=== PATIENT | male | born 1950 | race Hispanic/Latino ===

== ENCOUNTER 2017-12-26 11:26 | Emergency (ER) | payer MEDICARE, OTHER ==
[~2017-12-26] VITALS: Ht 185.4 cm; Wt 115.7 kg
[~2017-12-26 11:26] MED LIST: CIPRO500 MG PO; LISINOPRIL10 MG PO
[2017-12-26] MEDS ORDERED: METHOTREXATE2.5 MG PO (13:52)
[2017-12-26 14:38] VITALS: BP 136/78
== END 2017-12-26 14:30 | disposition home or self-care (01) ==
LOC: FSED 11:26
DX: R42 Dizziness and giddiness (principal); H53.2 Diplopia; H53.19 Other subjective visual disturbances
CPT/HCPCS: 70460; 80048; 81003; 82553; 84484; 85025; 93005; 99283

== ENCOUNTER 2020-02-15 19:13 | Observation (INO) | payer MEDICARE ==
[~2020-02-15] VITALS: Ht 185.4 cm; Wt 115.7 kg
[~2020-02-15 19:13] MED LIST changes: +METHOTREXATE2.5 MG PO
--- OUTSIDE RECORDS SUMMARY | 2020-02-15 19:16 | XMS REPORT ---
Author Author [facility] t Organization [facility] Address 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 Name Role Phone JESSICA MITCHELL, ALVARO PCP Payers Payer Name Policy Type Policy Number Effective Date Expiration Date Claude [employer]ley [employer] Medicare Advantage [id number] [facility] Problems Condition Name Condition Details Condition Category Status Onset Date Resolution Date Last Treatment Date Treating Clinician Comments Source Pancreatitis Pancreatitis Problem Active 2015-10-13 00:00:00 [facility] Allergies, Adverse Reactions, Alerts Allergy Name Allergy Type Status Severity Reaction(s) Onset Date Inacti ve Date Treating Clinician Comments Source Codeine Allergy to Substance Active Moderate hives 2015-10-13 00:00:00 [facility] Hydrocodone Allergy to Substance Active Moderate hives 2015-10-13 00: 00:00 [facility] Medications Ordered Medication Name Filled Medication Name Start Date Stop Da te Current Medication? Ordering Clinician Indication Dosage Frequency Signature (SIG) Comments Components Source Ciprofloxacin Hcl (Cipro) 500 Mg Tablet Ciprofloxacin Hcl (C ipro) 500 Mg Tablet Yes 500 Every 12 Hours [facility] Lisinopril 10 Mg Tablet Lisinopril 10 Mg Tablet Yes 10 Twice A Day [facility] Methotrexate Sodium (Methotrexate) 2.5 Mg Tablet Metho trexate Sodium (Methotrexate) 2.5 Mg Tablet Yes 2.5 Daily [facility] Lisinopril 10 Mg Tablet, 10 Mg Oral Lisinopril 10 Mg Tablet, 10 Mg Oral 2015-10-16 00:00:00 No 10 Daily [facility] Procedures This patient has no known procedures. Encounters Start Date/Time End Date/Time Encounter Type Admission Type Attendi ng Clinicians Care Facility Care Department Encounter ID Source 2017-12-26 11:26:00 2017-12-26 14:30:00 Departed Emergency Room [facility] [id number] [facility] Results This patient has no known results.
[2020-02-15] MEDS ORDERED: SODIUM CHLORIDE 0.9% 1000ML 1,000 ML IV STA (19:23)
[2020-02-15] MEDS ORDERED: PIPER-TAZ 3.375 GM 50 ML IV STA (19:23)
[2020-02-15] MEDS ORDERED: ONDANSETRON HCL INJ 2MG/ML 2ML 2 MG/ML VIAL IV STA (19:23)
[2020-02-15] MEDS ORDERED: ACETAMINOPHEN 325 MG TAB PO ONE (19:30)
--- NOTE | 2020-02-15 20:13 | Emergency Department Note ---
History of Present Illnes History of Present Illness Chief Complaint: Abdominal Complaints History of Present Illness This is a 69 year old male .c/o constipation abd pain nausea x 5 days Chief Complaint Comment 69 Y/O MALE PT AAOX3 REPORTS ABDOMINAL PAIN WITH CONSTIPATION X5-6 DAYS; ORAL TEMP IN TRIAGE 101. F; PT MEDICATED PER PROTOCOL, TOLERATED WEL; 20 GAUGE IV CATH PLACED TO PTS RIGHT FA, BLOOD OBTAINED FOR LAB ANALYSIS; PT GIVEN UA CUP TO OBTAIN SAMPLE Historian: Patient Arrival Mode: Car Onset (how long ago): day(s) (5 days) Radiation: non-radiation, back, neck, extremity, abdomen, periumbilical, flank, proximal, distal, other Severity: moderate Onset quality: gradual Duration (how long): day(s) (5 days) Context: recent illness, recent surgery, recent immobilization, recent travel, trauma/injury, new medications, hx of DVT/PE, non-compliance w/ medications, other Relieving factors: none Exacerbating factors: none Treatments prior to arrival: none Past Medical/Family History Physician Review I have reviewed the patient's past medical and family history. Any updates have been documented here. Past Medical History Recent Fever: Yes Clinical Suspicion of Infectio: Yes New/Unexplained Change in Ment: No Past Medical History: Hypertension Other Medical History: Psoriasis Other Surgery: Back surgery in 1971 for Disc Social History Smoking Cessation: Never Smoker Alcohol Use: None Any Illegal Drug Use: No TB Exposure/Symptoms: No Physically hurt or threatened: No Family History Family history of heart diseas: No Other Last Tetanus: unknown Any Pre-Existing Lines (PICC,: No Review of Systems Review of Systems Constitutional: fever EENTM: no symptoms Cardiovascular: no symptoms Respiratory: no symptoms Gastrointestinal: abdominal pain, constipation, nausea Genitourinary: no symptoms Musculoskeletal: no symptoms Neurological: no symptoms Psychological: no symptoms Endocrine: no symptoms Hematological/Lymphatic: no symptoms Review of other systems All other systems reviewed and negative. Physical Exam Related Data Allergies: Coded Allergies: codeine (Verified Allergy, Intermediate, hives, 10/13/15) hydrocodone (Verified Allergy, Intermediate, hives, 10/13/15) Triage Vital Signs Vital Signs Date Time Temp Pulse Resp B/P (MAP) Pulse Ox O2 Delivery O2 Flow Rate FiO2 02/15/20 19:17 101.5 98 18 230/91 97 Physical Exam CONSTITUTIONAL Constitutional: well-developed, well-nourished HENT HENT: normocephalic, atraumatic, oropharynx clear/moist, nose normal HENT L/R: left ext ear normal, right ext ear normal EYES Eyes: PERRL, conjunctivae normal NECK Neck: ROM normal PULMONARY Pulmonary: effort normal, breath sounds normal CARDIOVASCULAR Cardiovascular: regular rhythm, heart sounds normal, capillary refill normal, normal rate GASTROINTESTINAL Abdominal: soft; nontender (mild ttp left side abd ); bowel sounds normal, other (c/o nausea and no bm x 5 days ) GENITOURINARY Genitourinary: exam deferred SKIN Skin: warm, dry MUSCULOSKELETAL Musculoskeletal: ROM normal NEUROLOGICAL Neurological: alert, oriented x 3, no gross motor or sensory deficits PSYCHOLOGICAL Psychological: mood/affect normal, judgement normal Critical Care Time Subsequent provider I assumed direction of critical care for this patient from another provider of my specialty. Assessment & Plan Reassessment Reassessment time: 20:10 Reassessment Chief Complaint Comment 69 Y/O MALE PT AAOX3 REPORTS ABDOMINAL PAIN WITH CONSTIPATION X5-6 DAYS; ORAL TEMP IN TRIAGE 101. F; PT MEDICATED PER PROTOCOL, TOLERATED WEL; 20 GAUGE IV CATH PLACED TO PTS RIGHT FA, BLOOD OBTAINED FOR LAB ANALYSIS; PT GIVEN UA CUP TO OBTAIN SAMPLE 69y m presented to ed c/o abd pain generalized constipated x 5 days nausea noted fever 101 in triage -seen by pcp placed on mirlax w/o results - noted mild ttp on exam left side abd - denies vomiting diarrhea - lab ekg ct abd ordered r/o sbo -pt medicated w/ tylenol for fever strted on ns liter bolus and given zofran for nausea Patient reevaluated noted to have pancreatitis on CT abdomen and pelvis, febrile on arrival, however, no source of bacterial infection noted. No concerns of severe sepsis or sepsis at time of admission. Patient admitted for monitoring. Assessment & Plan Final Impression: (1) Pancreatitis Assessment & Plan CBC, CMP CT abdomen and pelvis Last Vital Signs Date Time Temp Pulse Resp B/P (MAP) Pulse Ox O2 Delivery O2 Flow Rate FiO2 02/15/20 19:17 101.5 98 18 230/91 97 Home Meds Reported Medications Methotrexate Sodium (METHOTREXATE) 2.5 Mg Tablet, 2.5 MG PO DAILY, #30 TAB 12/26/17 Lisinopril (LISINOPRIL) 10 Mg Tablet, 10 MG PO BID, #30 TAB 10/16/15 Ciprofloxacin Hcl (CIPRO) 500 Mg Tablet, 500 MG PO Q12H, #30 TAB 10/13/15 Medications in the ED Sodium Chloride 1,000 ml @ 0 mls/hr Q0M STAT IV ; Start 02/15/20 at 19:23; Stop 02/15/20 at 19:26; Status DC Piperacillin Sod/ Tazobactam Sod 50 ml @ 50 mls/hr ONCE STAT IV ; Start 02/15/20 at 19:23; Stop 02/15/20 at 20:22 Ondansetron HCl 4 mg ONCE STAT IV ; Start 02/15/20 at 19:23; Stop 02/15/20 at 19:38; Status DC Acetaminophen 975 mg ONCE ONCE PO ; Start 02/15/20 at 19:30; Stop 02/15/20 at 19:38; Status DC LOLA COLIN, February 15, 2020 20:13
[2020-02-15 20:19] LABS: BASOPHILS % 0.2 % (0.0-1.0); EOSINOPHILS % 0.3 % (0.0-6.0); HEMATOCRIT 43.2 % (38.2-49.6); HEMOGLOBIN 14.9 g/dL (14.0-18.0); LYMPHOCYTES # (AUTO) 1.1 (1.0-3.2); LYMPHOCYTES % 9.3 % (18.0-39.1); MEAN CORPUSCULAR HEMOGLOBIN 31.3 pg (28-32); MEAN CORPUSCULAR HGB CONC 34.5 g/dL (31-35); MEAN CORPUSCULAR VOLUME 90.8 fL (81-99); MONOCYTES # (AUTO) 1.1 (0.2-0.8); MONOCYTES % 9.6 % (4.4-11.3); NEUTROPHILS # (AUTO) 9.6 (2.1-6.9); NEUTROPHILS % 80.2 % (38.7-80.0); PLATELET COUNT 209 x10e3/uL (140-360); RED BLOOD COUNT 4.76 x10e6/uL (4.3-5.7); RED CELL DISTRIBUTION WIDTH 12.9 % (11.7-14.4)
[2020-02-15 20:37] LABS: ALANINE AMINOTRANSFERASE 17 IU/L (0-55); ALBUMIN 3.5 g/dL (3.5-5.0); ALBUMIN/GLOBULIN RATIO 0.9 (0.8-2.0); ALKALINE PHOSPHATASE 44 IU/L (40-150); ANION GAP 15.7 mmol/L (8-16); BLOOD UREA NITROGEN 11 mg/dL (7-26); BUN/CREATININE RATIO 11 (6-25); CALCIUM 9.5 mg/dL (8.4-10.2); CARBON DIOXIDE 24 mmol/L (22-29); CHLORIDE 101 mmol/L (98-107); CREATINE KINASE 146 IU/L (30-200); CREATININE, SERUM 1.04 mg/dL (0.72-1.25); EST GLOMERULAR FILTRATION RATE > 60 ML/MIN (60-); GLUCOSE 117 mg/dL (74-118); LIPASE 79 U/L (8-78); POTASSIUM 3.7 mmol/L (3.5-5.1); SODIUM 137 mmol/L (136-145)
[2020-02-15 21:06] LABS: BILIRUBIN,URINE SMALL (NEGATIVE); CLARITY,URINE SL CLOUDY (CLEAR); COLOR,URINE STRAW (YELLOW); KETONES,URINE 1+ (NEGATIVE); LEUKOCYTE ESTERASE ,URINE NEGATIVE (NEGATIVE); NITRITE,URINE NEGATIVE (NEGATIVE); PROTEIN,URINE DIPSTICK 1+ (NEGATIVE); URINE UROBILINOGEN 4 mg/dL (0.2 - 1)
[2020-02-15 21:17] LABS: BACTERIA,URINE MODERATE /HPF; EPITHELIAL CELLS,URINE FEW /LPF; MUCUS,URINE FEW (RARE); RBC,URINE 0-5 /HPF (0-5)
--- NOTE | 2020-02-15 21:37 | Diagnostic Imaging Report ---
EXAM: CT Abdomen and Pelvis WITH contrast INDICATION: Constipation, nausea COMPARISON: None. TECHNIQUE: Abdomen and pelvis were scanned utilizing a multidetector helical scanner from the lung base to the pubic symphysis after administration of IV contrast. Coronal and sagittal reformations were obtained. Routine protocol was performed. Scan was performed when during portal venous phase. IV CONTRAST: 100 mL of Isovue 370 ORAL CONTRAST: None COMPLICATIONS: None RADIATION DOSE: Total DLP: 847 mGy*cm Estimated effective dose: (DLP x 0.015 x size factor) mSv CTDIvol has been reviewed. It is below the limits set by the Radiation Protocol Committee (RPC). Dose modulation, iterative reconstruction, and/or weight based adjustment of the mA/kV was utilized to reduce the radiation dose to as low as reasonably achievable. FINDINGS: LINES and TUBES: None. LOWER THORAX: Left basilar atelectasis/scarring. HEPATOBILIARY: Enlarged hypodense liver. No focal hepatic lesions. No biliary ductal dilation. GALLBLADDER: No radio-opaque stones or sludge. No wall thickening. SPLEEN: No splenomegaly. PANCREAS: No focal masses or ductal dilatation. ADRENALS: No adrenal nodules KIDNEYS/URETERS: Kidneys enhance symmetrically. No hydronephrosis. No cystic or solid mass lesions. No stones. GI TRACT: No abnormal distention, wall thickening, or evidence of bowel obstruction. Few fluid-filled loops of nondilated small bowel in the mid to lower abdomen. Liquid stool in the colon and rectum. Appendix is normal. PELVIC ORGANS/BLADDER: Unremarkable. LYMPH NODES: No lymphadenopathy. VESSELS: There is moderate atherosclerotic disease in the aorta and major arterial branches. PERITONEUM / RETROPERITONEUM: Mild peripancreatic/mesenteric root edema, and a few tiny nodules in the mesenteric root fat. No free air or fluid. BONES: There are degenerative changes in the spine. SOFT TISSUES: Unremarkable. IMPRESSION: 1. Subtle findings which can be seen with enteritis. 2. Mild peripancreatic/mesenteric root edema could be related to enteritis although mild edematous pancreatitis or mesenteric panniculitis are also considerations. Correlate with serum lipase. Signed by: John Paul Rodas DO on 02/15/2020 9:34 PM
[2020-02-15] MEDS ORDERED: SODIUM CHLORIDE 0.9% 50ML 50 ML ONE (23:54)
[2020-02-15] MEDS ORDERED: IOPAMIDOL 370 MG/ML 200 ML INFUS..BTL INJ ONE (23:54)
[2020-02-16] VITALS (8 sets, daily range): BP systolic 141–160; BP diastolic 76–88
[2020-02-16] MEDS ORDERED: ONDANSETRON HCL INJ 2MG/ML 2ML 2 MG/ML VIAL IV PRN (00:30)
[2020-02-16] MEDS ORDERED: MORPHINE SULFATE 2 MG/ML SYR 1ML IV PRN (00:30)
[2020-02-16] MEDS ORDERED: SODIUM CHLORIDE 0.9% 1000ML 1,000 ML ONE (01:37)
[2020-02-16] MEDS ORDERED: PIPER-TAZ 3.375 GM 50 ML ONE (01:37)
--- NOTE | 2020-02-16 03:03 | NUR ---
Patient arrived to unit from ER via wheelchair in stable condition. No s/s of distress or c/o pain at this time. All safety measures in place. Will continue to monitor.
[2020-02-16] MEDS ORDERED: HUMIRA (03:13)
[2020-02-16] MEDS ORDERED: SIMVASTATIN20 MG PO (03:13)
--- OUTSIDE RECORDS SUMMARY | 2020-02-16 03:29 | XMS REPORT ---
Author Author [facility] t Organization [facility] Address [address] [place] [address] Phone Unavailable Care Team Providers Care Chore Worker Name Role Phone JESSICA MITCHELL, IRFAN PCP Mitchell SCHRADER Attphyeverton Unavailable Payers Payer Name Policy Type Policy Number Effective Date Expiration Date [facility] Medicare Advantage [facility] Problems Condition Name Condition Details Condition Category Status Onset Date Resolution Date Last Treatment Date Treating Clinician Comments Source Pancreatitis Pancreatitis Problem Active 2015-10-13 00:00:00 [facility] Allergies, Adverse Reactions, Alerts Allergy Name Allergy Type Status Severity Reaction(s) Onset Date Inacti ve Date Treating Clinician Comments Source Codeine Allergy to substance Active Moderate hives 2015-10-13 00:00:00 [facility] Hydrocodone Allergy to substance Active Moderate hives 2015-10-13 00: 00:00 [facility] Social History Social Habit Start Date Stop Date Quantity Comments Source Sex Assigned At 1950 00:00:00 1950 00:00:00 Male [facility] Medications Ordered Medication Name Filled Medication Name Start Date Stop Da te Current Medication? Ordering Clinician Indication Dosage Frequency Signature (SIG) Comments Components Source Ciprofloxacin Hcl (Cipro) 500 Mg TABLET Ciprofloxacin Hcl (C ipro) 500 Mg TABLET Yes 500 Every 12 Hours [facility] Lisinopril Lisinopril Yes 10 Twice A Day [facility] Methotrexate Sodium (Methotrexate) 2.5 Mg TABLET Metho trexate Sodium (Methotrexate) 2.5 Mg TABLET Yes 2.5 Daily [facility] Lisinopril Lisinopril 2015-10-16 00:00:00 No 10 Maritza ly [facility] Vital Signs Vital Name Observation Time Observation Value Comments Source Body Temperature 2020-02-15 22:07:00 97.7 [degF] [facility] Weight 2020-02-15 19:17:00 255 [lb_av] [facility] BMI (Body Mass Index) 2020-02-15 19:17:00 33.6 kg/m2 [facility] Procedures Procedure Date / Time Performed Performing Clinician Sourlatonya e Computed tomography of abdomen and pelvis with contrast 00:00:00 [facility] Encounters Start Date/Time End Date/Time [facility] Source 2020-02-15 19:13:00 2020-02-16 01:57:00 Departed Emergency Room 1 MAGEN SCHRADER [facility] [id number] [facility] 2017-12-26 11:26:00 2017-12-26 14:30:00 Departed Emergency Room [facility] [id number] [facility] Results Test Description Test Time Test Comments Results Result Comments Source CT ABDOMEN/PELVIS W 2020-02-15 21:29:00 [place] [address] Patient Name: DEBRA ROMERO MR #: [id number] : 1950 Age/Sex: 69/M Req #: [id number] Adm Physician: Ordered by: VADIM WILEY TILE FINISHER Report #: [id number] Location: ER Room/Bed: Procedure: [id number] CT/CT ABDOMEN/PELVIS W Exam Date: 02/15/20 Exam Time: 2109 REPORT STATUS: Signed EXAM: CT Abdomen and Pelvis WITH contrast INDICATION: Constipation, nausea COMPARISON: None. TECHNIQUE: Abdomen and pelvis were scanned utilizing a multidetector helical scanner from the lung base to the pubic symphysis after administration of IV contrast. Coronal and sagittal reformations were obtained. Routine protocol was performed. Scan was performed when during portal venous phase. IV CONTRAST: 100 mL of Isovue 370 ORAL CONTRAST: None COMPLICATIONS: None RADIATION DOSE: Total DLP: 847 mGy*cm Estimated effective dose: (DLP x 0.015 x size factor) mSv CTDIvol has been reviewed. It is below the limits set by the Radiation Protocol Committee (RPC). Dose modulation, iterative reconstruction, and/or weight based adjustment of the mA/kV was utilized to reduce the radiation dose to as low as reasonably achievable. FINDINGS: LINES and TUBES: None. LOWER THORAX: Left basilar atelectasis/scarring. HEPATOBILIARY: Enlarged hypodense liver. No focal hepatic lesions. No biliary ductal dilation. GALLBLADDER: No radio-opaque stones or sludge. No wall thickening. SPLEEN: No splenomegaly. PANCREAS: No focal masses or ductal dilatation. ADRENALS: No adrenal nodules KIDNEYS/URETERS: Kidneys enhance symmetrically. No hydronephrosis. No cystic or solid mass lesions. No stones. GI TRACT: No abnormal distention, wall thickening, or evidence of bowel obstruction. Few fluid-filled loops of nondilated small bowel in the mid to lower abdomen. Liquid stool in the colon and rectum. Appendix is normal. PELVIC ORGANS/BLADDER: Unremarkable. LYMPH NODES: No lymphadenopathy. VESSELS: There is moderate atherosclerotic disease in the aorta and major arterial branches. PERITONEUM / RETROPERITONEUM: Mild peripancreatic/mesenteric root edema, and a few tiny nodules in the mesenteric root fat. No free air or fluid. BONES: There are degenerative changes in the spine. SOFT TISSUES: Unremarkable. IMPRESSION: 1. Subtle findings which can be seen with enteritis. 2. Mild peripancreatic/mesenteric root edema could be related to enteritis although mild edematous pancreatitis or mesenteric panniculitis are also considerations. Correlate with serum lipase. Signed by: John Paul Rodas DO on 02/15/2020 9:34 PM Dictated By: JOHN PAUL RODAS DO 33 Transcribed By: SAMANTHA on 02/15/202133 COPY TO: VADIM WILEY TILE FINISHER Blood leukocytes automated count (number/volume) 2020-02-15 19:30:00 Test Item White Blood Count (test code = 6690-2) 11.91 4.8-10.8 [facility] automated count (number/volume)2020-02-15 19:30:00* Test Item Value Reference Range Interpretation Comments Red Blood Count (test code = 789-8) 4.76 4.3-5.7 [facility] hemoglobin measurement (moles/volume)2020-02-15 19:30:00* Test Item Value Reference Range Interpretation Comments Hemoglobin (test code = 17894-2) 14.9 14.0-18.0 [facility] CampusAutomated blood hematocrit (volume fraction)2020-02-15 19:30:00* Test Item Value Reference Range Interpretation Comments Hematocrit (test code = 4544-3) 43.2 38.2-49.6 [facility] CampusAutomated erythrocyte mean corpuscular zktxpb3043-05-19 19:30:00* Test Item Value Reference Range Interpretation Comments Mean Corpuscular Volume (test code = 787-2) 90.8 81-99 [facility] CampusAutomated erythrocyte mean corpuscular hemoglobin (mass per erythrocyte)2020-02-15 19:30:00* Test Item Value Reference Range Interpretation Comments Mean Corpuscular Hemoglobin (test code = 785-6) 31.3 28-32 [facility] CampusAutomated erythrocyte mean corpuscular hemoglobin concentration measurement (mass/volume)2020-02-15 19:30:00* Test Item Value Reference Range Interpretation Comments Mean Corpuscular Hemoglobin Concent (test code = 786-4) 34.5 31-35 [facility] CampusRDW ZtbLs-Vsr3694-15-29 19:30:00* Test Item Value Reference Range Interpretation Comments Red Cell Distribution Width (test code = 56436-5) 12.9 11.7 -14.4 [facility] CampusAutomated blood platelet count (count/volume)2020-02-15 19:30:00* Test Item Value Reference Range Interpretation Comments Platelet Count (test code = 777-3) 209 140-360 [facility] CampusAutomated blood segmented neutrophil count as percentage of total zismqzovxc3572-83-52 19:30:00* Test Item Value Reference Range Interpretation Comments Neutrophils (%) (Auto) (test code = 86745-7) 80.2 38.7-80.0 [facility] CampusAutomated blood lymphocyte count as percentage ot total efmhyvgryo8924-26-43 19:30:00* Test Item Value Reference Range Interpretation Comments Lymphocytes (%) (Auto) (test code = 736-9) 9.3 18.0-39.1 [facility] CampusAutomated blood monocyte count as percentage of total ipxyavufwf7537-81-28 19:30:00* Test Item Value Reference Range Interpretation Comments Monocytes (%) (Auto) (test code = 5905-5) 9.6 4.4-11.3 [facility] CampusAutomated blood eosinophil count as percentage of total ipeqaknxja9333-57-45 19:30:00* Test Item Value Reference Range Interpretation Comments Eosinophils (%) (Auto) (test code = 713-8) 0.3 0.0-6.0 [facility] CampusAutomated blood basophil count as percentage of total duyhklmtdh2999-00-70 19:30:00* Test Item Value Reference Range Interpretation Comments Basophils (%) (Auto) (test code = 706-2) 0.2 0.0-1.0 [facility] CampusFluoroscopic procedure less than one hour rhzxkndd6486-04-52 19:30:00* Test Item Value Reference Range Interpretation Comments IM GRANULOCYTES % (test code = IM GRANULOCYTES %) 0.4 0.0- 1.0 [facility] CampusAutomated blood neutrophil count 2020-02-15 19:30:00* Test Item Value Reference Range Interpretation Comments Neutrophils # (Auto) (test code = 751-8) 9.6 2.1-6.9 [facility]Blood lymphocytes count (number/volume) 2020-02-15 19:30:00* Test Item Value Reference Range Interpretation Comments Lymphocytes # (Auto) (test code = 41233-2) 1.1 1.0-3.2 [facility]Blood monocytes automated count (number/volume)2020-02-15 19:30:00* Test Item Value Reference Range Interpretation Comments Monocytes # (Auto) (test code = 742-7) 1.1 0.2-0.8 [facility] CampusAutomated blood eosinophil count 2020-02-15 19:30:00* Test Item Value Reference Range Interpretation Comments Eosinophils # (Auto) (test code = 711-2) 0.0 0.0-0.4 [facility] CampusAutomated blood basophil count (count/volume)2020-02-15 19:30:00* Test Item Value Reference Range Interpretation Comments Basophils # (Auto) (test code = 704-7) 0.0 0.0-0.1 [facility] CampusFluoroscopic procedure less than one hour lxrgejrt3388-72-57 19:30:00* Test Item Value Reference Range Interpretation Comments Absolute Immature Granulocyte (auto (richard t code = Absolute Immature Granulocyte (auto) 0.05 0-0.1 [facility] CampusUrine color hvoscaojljqzi0632-00-43 19:30:00* Test Item Value Reference Range Interpretation Comments Urine Color (test code = 5778-6) STRAW YELLOW [facility] CampusUrine gksbcpf8644-91-74 19:30:00* Test Item Value Reference Range Interpretation Comments Urine Clarity (test code = 11784-5) SL CLOUDY CLEAR [facility] Urine by Test strip 2020-02-15 19:30:00* Test Item Value Reference Range Interpretation Comments Urine Specific [place] (test code = 5811-5) 1.020 1.010-1.02 5 [facility] CampusUrine pH measurement by automated test pjlid7963-06-99 19:30:00* Test Item Value Reference Range Interpretation Comments Urine pH (test code = 15466-4) 6 5-7 [facility] CampusUrine leukocyte esterase detection by lzdqrlpw0314-90-76 19:30:00* Test Item Value Reference Range Interpretation Comments Urine Leukocyte Esterase (test code = 5799-2) NEGATIVE NEGATIVE [facility] CampusUrine nitrite bgskjpcfb2902-80-40 19:30:00* Test Item Value Reference Range Interpretation Comments Urine Nitrite (test code = 21427-1) NEGATIVE NEGATIVE [facility] CampusUrine protein measurement by test strip (mass/volume)2020-02-15 19:30:00* Test Item Value Reference Range Interpretation Comments Urine Protein (test code = 5804-0) 1+ NEGATIVE [facility] CampusUrine glucose dfyvaqigi7767-08-85 19:30:00* Test Item Value Reference Range Interpretation Comments Urine Glucose (UA) (test code = 2349-9) NEGATIVE NEGATIVE [facility] CampusUrine ketones detection by automated test ydqyv8515-89-94 19:30:00* Test Item Value Reference Range Interpretation Comments Urine Ketones (test code = 69470-8) 1+ NEGATIVE [facility] CampusUrine urobilinogen measurement by test strip (mass/volume)2020-02-15 19:30:00* Test Item Value Reference Range Interpretation Comments Urine Urobilinogen (test code = 75185-1) 4 0.2-1 [facility] CampusUrine total bilirubin measurement (mass/volume)2020-02-15 19:30:00* Test Item Value Reference Range Interpretation Comments Urine Bilirubin (test code = 1978-6) SMALL NEGATIVE [facility] CampusUrine erythrocytes lrwpguakc3316-24-83 19:30:00* Test Item Value Reference Range Interpretation Comments Urine Blood (test code = 71529-3) TRACE NEGATIVE [facility] CampusAutomated urine sediment leukocyte count by microscopy (number/high power field)2020-02-15 19:30:00* Test Item Value Reference Range Interpretation Comments Urine WBC (test code = 5821-4) NONE 0-5 [facility] CampusErythrocytes detection in urine sediment by light rfgcpcylow3745-08-42 19:30:00* Test Item Value Reference Range Interpretation Comments Urine RBC (test code = 56930-4) 0-5 0-5 [facility] CampusBacteria detection in urine sediment by light hacrqsxwhh6304-78-59 19:30:00* Test Item Value Reference Range Interpretation Comments Urine Bacteria (test code = 00066-5) MODERATE NONE [facility] CampusEpithelial cells detection in urine sediment by light leeqievthv1363-39-02 19:30:00* Test Item Value Reference Range Interpretation Comments Urine Epithelial Cells (test code = 25678-6) FEW NONE [facility] CampusMucus detection in urine sediment by light wdhvbqpmsw2016-75-84 19:30:00* Test Item Value Reference Range Interpretation Comments Urine Mucus (test code = 8247-9) FEW RARE [facility]ererum or plasma sodium measurement (moles/volume)2020-02-15 19:30:00* Test Item Value Reference Range Interpretation Comments Sodium Level (test code = 2951-2) 137 136-145 [facility]ererum or plasma potassium measurement (moles/volume)2020-02-15 19:30:00* Test Item Value Reference Range Interpretation Comments Potassium Level (test code = 2823-3) 3.7 3.5-5.1 [facility]ererum or plasma chloride measurement (moles/volume)2020-02-15 19:30:00* Test Item Value Reference Range Interpretation Comments Chloride Level (test code = 2075-0) 101 98-107 [facility]ererum or plasma carbon dioxide, total measurement (moles/volume)2020-02-15 19:30:00* Test Item Value Reference Range Interpretation Comments Carbon Dioxide Level (test code = 2028-9) 24 22-29 [facility]ererum or plasma anion [id number] 19:30:00* Test Item Value Reference Range Interpretation Comments Anion Gap (test code = 33821-2) 15.7 8-16 [facility]ererum or plasma urea nitrogen measurement (mass/volume)2020-02-15 19:30:00* Test Item Value Reference Range Interpretation Comments Blood Urea Nitrogen (test code = 3094-0) 11 7-26 [facility]ererum or plasma creatinine measurement (mass/volume)2020-02-15 19:30:00* Test Item Value Reference Range Interpretation Comments Creatinine (test code = 2160-0) 1.04 0.72-1.25 [facility]ererum or plasma urea nitrogen/creatinine mass dkaez2128-89-87 19:30:00* Test Item Value Reference Range Interpretation Comments BUN/Creatinine Ratio (test code = 3097-3) 11 03-13 [facility] CampusEstimated glomerular filtration rate (GFR) fkrenpvbhyuzj5141-93-76 19:30:00* Test Item Value Reference Range Interpretation Comments Estimat Glomerular Filtration Rate (test code = 233892802) > 60 >60 Ranges were taken from the National Kidney Disease Education Program and the [facility] literature.Reference ranges:60 or greater: Jxhjyp14-85 ( for 3 consecutive months): Chronic kidney disease 15 or less: Kidney failureThe Hospitals of Providence East CampusGlucose ssmekhtrjly6630-89-94 19:30:00* Test Item Value Reference Range Interpretation Comments Glucose Level (test code = REZ9396) 117 74-118 [facility]ererum or plasma calcium measurement (mass/volume)2020-02-15 19:30:00* Test Item Value Reference Range Interpretation Comments Calcium Level (test code = 24847-9) 9.5 8.4-10.2 [facility] CampusFluoroscopic procedure less than one hour fcilllrc1127-80-89 19:30:00* Test Item Value Reference Range Interpretation Comments Lactic Acid Level (test code = Lactic Acid Level) 1.1 0.5- 2.0 [facility]ererum or plasma total bilirubin measurement (mass/volume)2020-02-15 19:30:00* Test Item Value Reference Range Interpretation Comments Total Bilirubin (test code = 1975-2) 1.0 0.2-1.2 [facility] CampusFluoroscopic procedure less than one hour fufytxbd6359-82-06 19:30:00* Test Item Value Reference Range Interpretation Comments Aspartate Amino Transf (AST/SGOT) (test code = Aspartate Amino Transf (AST/SGOT)) 13 5-34 [facility] Centererum or plasma alanine aminotransferase measurement (enzymatic activity/volume)2020-02-15 19:30:00* Test Item Value Reference Range Interpretation Comments Alanine Aminotransferase (ALT/SGPT) (test code = 1742-6) 17 0-55 [facility] Centererum or plasma protein measurement (mass/volume)2020-02-15 19:30:00* Test Item Value Reference Range Interpretation Comments Total Protein (test code = 2885-2) 7.5 6.5-8.1 [facility]ererum or plasma albumin measurement (mass/volume)2020-02-15 19:30:00* Test Item Value Reference Range Interpretation Comments Albumin (test code = 1751-7) 3.5 3.5-5.0 [facility] CampusPlasma globulin measurement (mass/volume) 2020-02-15 19:30:00* Test Item Value Reference Range Interpretation Comments Globulin (test code = 93799-6) 4.0 2.3-3.5 [facility]ererum or plasma albumin/globulin mass sqaqa4074-78-76 19:30:00* Test Item Value Reference Range Interpretation Comments Albumin/Globulin Ratio (test code = 1759-0) 0.9 0.8-2.0 [facility]ererum or plasma alkaline phosphatase measurement (enzymatic activity/volume)2020-02-15 19:30:00* Test Item Value Reference Range Interpretation Comments Alkaline Phosphatase (test code = 6768-6) 44 40-150 [facility]ererum or plasma creatine kinase measurement (enzymatic activity/volume)2020-02-15 19:30:00* Test Item Value Reference Range Interpretation Comments Creatine Kinase (test code = 2157-6) 146 30-200 [facility] Centererum or plasma creatine kinase MB measurement (mass/volume)2020-02-15 19:30:00* Test Item Value Reference Range Interpretation Comments Creatine Kinase MB (test code = 00993-1) 0.60 0-5.0 [facility] CampusTroponin I measurement by highly sensitive enzyme rixtcqrjcur9868-18-98 19:30:00* Test Item Value Reference Range Interpretation Comments Troponin I (test code = 22774-6) < 0.001 0-0.300 [facility]ererum or plasma lipase measurement (enzymatic activity/volume)2020-02-15 19:30:00* Test Item Value Reference Range Interpretation Comments Lipase (test code = 3040-3) 79 8-78 [facility] CampusBlood leukocytes automated count (number/volume)2020-02-15 19:30:00* Test Item Value Reference Range Interpretation Comments White Blood Count (test code = 6690-2) 11.91 4.8-10.8 [facility] CampusBlood erythrocytes automated count (number/volume)2020-02-15 19:30:00* Test Item Value Reference Range Interpretation Comments Red Blood Count (test code = 789-8) 4.76 4.3-5.7 [facility] (moles/volume)2020-02-15 19:30:00* Test Item Value Reference Range Interpretation Comments Hemoglobin (test code = 62453-5) 14.9 14.0-18.0 [facility] CampusAutomated blood hematocrit (volume fraction)2020-02-15 19:30:00* Test Item Value Reference Range Interpretation Comments Hematocrit (test code = 4544-3) 43.2 38.2-49.6 [facility] CampusAutomated erythrocyte mean corpuscular uacpli4165-07-22 19:30:00* Test Item Value Reference Range Interpretation Comments Mean Corpuscular Volume (test code = 787-2) 90.8 81-99 [facility] CampusAutomated erythrocyte mean corpuscular hemoglobin (mass per erythrocyte)2020-02-15 19:30:00* Test Item Value Reference Range Interpretation Comments Mean Corpuscular Hemoglobin (test code = 785-6) 31.3 28-32 [facility] CampusAutomated erythrocyte mean corpuscular hemoglobin concentration measurement (mass/volume)2020-02-15 19:30:00* Test Item Value Reference Range Interpretation Comments Mean Corpuscular Hemoglobin Concent (test code = 786-4) 34.5 31-35 [facility] CampusRDW KibQr-Nml6742-56-29 19:30:00* Test Item Value Reference Range Interpretation Comments Red Cell Distribution Width (test code = 58156-3) 12.9 11.7 -14.4 [facility] CampusAutomated blood platelet count (count/volume)2020-02-15 19:30:00* Test Item Value Reference Range Interpretation Comments Platelet Count (test code = 777-3) 209 140-360 [facility] CampusAutomated blood segmented neutrophil count as percentage of total lvztvresyg0572-30-12 19:30:00* Test Item Value Reference Range Interpretation Comments Neutrophils (%) (Auto) (test code = 50766-0) 80.2 38.7-80.0 [facility] CampusAutreplaced by [facility] blood lymphocyte count as percentage ot total hhzfkudtyv7304-27-79 19:30:00* Test Item Value Reference Range Interpretation Comments Lymphocytes (%) (Auto) (test code = 736-9) 9.3 18.0-39.1 [facility] CampusAutomated blood monocyte count as percentage of total flayhxfjuw4518-24-59 19:30:00* Test Item Value Reference Range Interpretation Comments Monocytes (%) (Auto) (test code = 5905-5) 9.6 4.4-11.3 [facility] CampusAutomated blood eosinophil count as percentage of total aqvhiufelc0343-89-86 19:30:00* Test Item Value Reference Range Interpretation Comments Eosinophils (%) (Auto) (test code = 713-8) 0.3 0.0-6.0 [facility] CampusAutomated blood basophil count as percentage of total wmanwbjydf6004-50-81 19:30:00* Test Item Value Reference Range Interpretation Comments Basophils (%) (Auto) (test code = 706-2) 0.2 0.0-1.0 [facility] CampusFluoroscopic procedure less than one hour ljezclhx7834-93-80 19:30:00* Test Item Value Reference Range Interpretation Comments IM GRANULOCYTES % (test code = IM GRANULOCYTES %) 0.4 0.0- 1.0 [facility] CampusAutomated blood neutrophil count 2020-02-15 19:30:00* Test Item Value Reference Range Interpretation Comments Neutrophils # (Auto) (test code = 751-8) 9.6 2.1-6.9 [facility] CampusBlood lymphocytes count (number/volume) 2020-02-15 19:30:00* Test Item Value Reference Range Interpretation Comments Lymphocytes # (Auto) (test code = 62122-5) 1.1 1.0-3.2 [facility] CampusBlood monocytes automated count (number/volume)2020-02-15 19:30:00* Test Item Value Reference Range Interpretation Comments Monocytes # (Auto) (test code = 742-7) 1.1 0.2-0.8 [facility] CampusAutomated blood eosinophil count 2020-02-15 19:30:00* Test Item Value Reference Range Interpretation Comments Eosinophils # (Auto) (test code = 711-2) 0.0 0.0-0.4 [facility] CampusAutomated blood basophil count (count/volume)2020-02-15 19:30:00* Test Item Value Reference Range Interpretation Comments Basophils # (Auto) (test code = 704-7) 0.0 0.0-0.1 [facility] CampusFluoroscopic procedure less than one hour nslmkqtf5303-81-64 19:30:00* Test Item Value Reference Range Interpretation Comments Absolute Immature Granulocyte (auto (richard t code = Absolute Immature Granulocyte (auto) 0.05 0-0.1 [facility] color [id number] 19:30:00* Test Item Value Reference Range Interpretation Comments Urine Color (test code = 5778-6) STRAW YELLOW [facility] [id number] 19:30:00* Test Item Value Reference Range Interpretation Comments Urine Clarity (test code = 12458-2) SL CLOUDY CLEAR [facility] by Test strip 2020-02-15 19:30:00* Test Item Value Reference Range Interpretation Comments Urine Specific [place] (test code = 5811-5) 1.020 1.010-1.02 5 [facility] pH measurement by automated test [id number] 19:30:00* Test Item Value Reference Range Interpretation Comments Urine pH (test code = 44328-7) 6 5-7 [facility] leukocyte esterase detection by [id number] 19:30:00* Test Item Value Reference Range Interpretation Comments Urine Leukocyte Esterase (test code = 5799-2) NEGATIVE NEGATIVE [facility] nitrite [id number] 19:30:00* Test Item Value Reference Range Interpretation Comments Urine Nitrite (test code = 99402-2) NEGATIVE NEGATIVE [facility] protein measurement by test strip (mass/volume)2020-02-15 19:30:00* Test Item Value Reference Range Interpretation Comments Urine Protein (test code = 5804-0) 1+ NEGATIVE [facility] glucose [id number] 19:30:00* Test Item Value Reference Range Interpretation Comments Urine Glucose (UA) (test code = 2349-9) NEGATIVE NEGATIVE [facility] ketones detection by automated test [id number] 19:30:00* Test Item Value Reference Range Interpretation Comments Urine Ketones (test code = 22968-1) 1+ NEGATIVE [facility] urobilinogen measurement by test strip (mass/volume)2020-02-15 19:30:00* Test Item Value Reference Range Interpretation Comments Urine Urobilinogen (test code = 17098-8) 4 0.2-1 [facility] total bilirubin measurement (mass/volume)2020-02-15 19:30:00* Test Item Value Reference Range Interpretation Comments Urine Bilirubin (test code = 1978-6) SMALL NEGATIVE [facility] erythrocytes [id number] 19:30:00* Test Item Value Reference Range Interpretation Comments Urine Blood (test code = 12674-9) TRACE NEGATIVE [facility] CampusAutomated urine sediment leukocyte count by microscopy (number/high power field)2020-02-15 19:30:00* Test Item Value Reference Range Interpretation Comments Urine WBC (test code = 5821-4) NONE 0-5 [facility] CampusErythrocytes detection in urine sediment by light [id number] 19:30:00* Test Item Value Reference Range Interpretation Comments Urine RBC (test code = 95132-3) 0-5 0-5 [facility] CampusBacteria detection in urine sediment by light [id number] 19:30:00* Test Item Value Reference Range Interpretation Comments Urine Bacteria (test code = 89383-9) MODERATE NONE [facility] CampusEpithelial cells detection in urine sediment by light [id number] 19:30:00* Test Item Value Reference Range Interpretation Comments Urine Epithelial Cells (test code = 41957-5) FEW NONE [facility] CampusMucus detection in urine sediment by light afcnhbdget4548-37-99 19:30:00* Test Item Value Reference Range Interpretation Comments Urine Mucus (test code = 8247-9) FEW RARE [facility] sodium measurement (moles/volume)2020-02-15 19:30:00* Test Item Value Reference Range Interpretation Comments Sodium Level (test code = 2951-2) 137 136-145 [facility] or plasma potassium measurement (moles/volume)2020-02-15 19:30:00* Test Item Value Reference Range Interpretation Comments Potassium Level (test code = 2823-3) 3.7 3.5-5.1 [facility] plasma chloride measurement (moles/volume)2020-02-15 19:30:00* Test Item Value Reference Range Interpretation Comments Chloride Level (test code = 2075-0) 101 98-107 [facility] or plasma carbon dioxide, total measurement (moles/volume)2020-02-15 19:30:00* Test Item Value Reference Range Interpretation Comments Carbon Dioxide Level (test code = 2028-9) 24 22-29 [facility] or plasma anion [id number] 19:30:00* Test Item Value Reference Range Interpretation Comments Anion Gap (test code = 93853-9) 15.7 8-16 [facility] urea nitrogen measurement (mass/volume)2020-02-15 19:30:00* Test Item Value Reference Range Interpretation Comments Blood Urea Nitrogen (test code = 3094-0) 11 - [facility] or plasma creatinine measurement (mass/volume)2020-02-15 19:30:00* Test Item Value Reference Range Interpretation Comments Creatinine (test code = 2160-0) 1.04 0.72-1.25 [facility]ere[facility] or plasma urea nitrogen/creatinine mass [id number] 19:30:00* Test Item Value Reference Range Interpretation Comments BUN/Creatinine Ratio (test code = 3097-3) 11 - [facility] CampusEstimated glomerular filtration rate (GFR) pmcfqphhnxhpr0844-47-44 19:30:00* Test Item Value Reference Range Interpretation Comments Estimat Glomerular Filtration Rate (test code = 386701014) > 60 >60 Ranges were taken from the National Kidney Disease Education Program and the [facility] literature.Reference ranges:60 or greater: Sbiclr99-26 ( for 3 consecutive months): Chronic kidney disease 15 or less: Kidney failureThe Hospitals of [facility] CampusGlucose qlxgaefjwbt5566-61-50 19:30:00* Test Item Value Reference Range Interpretation Comments Glucose Level (test code = LVD3032) 117 74-118 [facility]ere[facility] or plasma calcium measurement (mass/volume)2020-02-15 19:30:00* Test Item Value Reference Range Interpretation Comments Calcium Level (test code = 07497-7) 9.5 8.4-10.2 [facility] CampusFluoroscopic procedure less than one hour [id number] 19:30:00* Test Item Value Reference Range Interpretation Comments Lactic Acid Level (test code = Lactic Acid Level) 1.1 0.5- 2.0 [facility] or plasma total bilirubin measurement (mass/volume)2020-02-15 19:30:00* Test Item Value Reference Range Interpretation Comments Total Bilirubin (test code = 1975-2) 1.0 0.2-1.2 [facility] CampusFluoroscopic procedure less than one hour [id number] 19:30:00* Test Item Value Reference Range Interpretation Comments Aspartate Amino Transf (AST/SGOT) (test code = Aspartate Amino Transf (AST/SGOT)) 13 5-34 [facility]ererum or plasma alanine aminotransferase measurement (enzymatic activity/volume)2020-02-15 19:30:00* Test Item Value Reference Range Interpretation Comments Alanine Aminotransferase (ALT/SGPT) (test code = 1742-6) 17 0-55 [facility]ererum or plasma protein measurement (mass/volume)2020-02-15 19:30:00* Test Item Value Reference Range Interpretation Comments Total Protein (test code = 2885-2) 7.5 6.5-8.1 [facility]ererum or plasma albumin measurement (mass/volume)2020-02-15 19:30:00* Test Item Value Reference Range Interpretation Comments Albumin (test code = 1751-7) 3.5 3.5-5.0 [facility] CampusPlasma globulin measurement (mass/volume) 2020-02-15 19:30:00* Test Item Value Reference Range Interpretation Comments Globulin (test code = 37066-2) 4.0 2.3-3.5 [facility]ererum or plasma albumin/globulin mass [id number] 19:30:00* Test Item Value Reference Range Interpretation Comments Albumin/Globulin Ratio (test code = 1759-0) 0.9 0.8-2.0 [facility]ererum or plasma alkaline phosphatase measurement (enzymatic activity/volume)2020-02-15 19:30:00* Test Item Value Reference Range Interpretation Comments Alkaline Phosphatase (test code = 6768-6) 44 40-150 [facility]ererum or plasma creatine kinase measurement (enzymatic activity/volume)2020-02-15 19:30:00* Test Item Value Reference Range Interpretation Comments Creatine Kinase (test code = 2157-6) 146 30-200 [facility]ererum or plasma creatine kinase MB measurement (mass/volume)2020-02-15 19:30:00* Test Item Value Reference Range Interpretation Comments Creatine Kinase MB (test code = 26093-7) 0.60 0-5.0 [facility] CampusTroponin I measurement by highly sensitive enzyme [id number] 19:30:00* Test Item Value Reference Range Interpretation Comments Troponin I (test code = 39812-4) < 0.001 0-0.300 [facility]ererum or plasma lipase measurement (enzymatic activity/volume)2020-02-15 19:30:00* Test Item Value Reference Range Interpretation Comments Lipase (test code = 3040-3) 79 8-78 [facility]
[2020-02-16] MEDS ORDERED: TRAMADOL HCL 50 MG TAB PO PRN (13:30)
[2020-02-16] MEDS ORDERED: ACETAMINOPHEN 325 MG TAB PO PRN (13:30)
[2020-02-16] MEDS ORDERED: CITRATE OF MAGNESIA 300ML BOTTLE PO NR (13:30)
[2020-02-16] MEDS: LISINOPRIL 10 MG TAB PO SCH (14:08)
[2020-02-16] MEDS: ENOXAPARIN SOD INJ 40 MG/0.4 ML SYR SC SCH (18:02)
--- NOTE | 2020-02-16 20:00 | NUR ---
Patient Refused bed alarm states he thinks he don't need it. Explained risk patient still refused.
[2020-02-16] MEDS ORDERED: SIMVASTATIN 20 MG TAB PO SCH (21:00)
[2020-02-17] VITALS (7 sets, daily range): BP systolic 135–161; BP diastolic 76–88
[2020-02-17 05:56] LABS: BASOPHILS % 0.3 % (0.0-1.0); EOSINOPHILS # (AUTO) 0.1 (0.0-0.4); EOSINOPHILS % 1.8 % (0.0-6.0); HEMATOCRIT 41.6 % (38.2-49.6); LYMPHOCYTES # (AUTO) 1.2 (1.0-3.2); LYMPHOCYTES % 16.2 % (18.0-39.1); MEAN CORPUSCULAR HEMOGLOBIN 31.8 pg (28-32); MEAN CORPUSCULAR HGB CONC 33.7 g/dL (31-35); MEAN CORPUSCULAR VOLUME 94.5 fL (81-99); MONOCYTES # (AUTO) 0.7 (0.2-0.8); MONOCYTES % 10.1 % (4.4-11.3); NEUTROPHILS # (AUTO) 5.1 (2.1-6.9); PLATELET COUNT 186 x10e3/uL (140-360); RED CELL DISTRIBUTION WIDTH 12.9 % (11.7-14.4)
[2020-02-17 06:33] LABS: ALANINE AMINOTRANSFERASE 25 IU/L (0-55); ALKALINE PHOSPHATASE 48 IU/L (40-150); BILIRUBIN,DIRECT 0.4 mg/dL (0.0-0.5); BLOOD UREA NITROGEN 16 mg/dL (7-26); BUN/CREATININE RATIO 18 (6-25); CALCIUM 9.1 mg/dL (8.4-10.2); CARBON DIOXIDE 22 mmol/L (22-29); CHLORIDE 104 mmol/L (98-107); CHOL/HDL RATIO 4.5 (3.9-4.7); CHOLESTEROL 162 MD/DL (0-199); CREATININE, SERUM 0.89 mg/dL (0.72-1.25); EST GLOMERULAR FILTRATION RATE > 60 ML/MIN (60-); GLUCOSE 104 mg/dL (74-118); HDL CHOLESTEROL 36 MG/DL (40-60); LDL CHOLESTEROL 106 MG/DL (60-130); LIPASE 31 U/L (8-78); SODIUM 136 mmol/L (136-145); TRIGLYCERIDES 99 MG/DL (0-149)
[2020-02-17 06:53] LABS: THYROID STIMULATING HORMONE 1.291 uIU/mL (0.350-4.940)
--- NOTE | 2020-02-17 06:55 | NUR ---
Received patient lying in bed with eyes open. Respiration even and unlabored without SOB. Patient reported he had multiple bowel movement since last night. Verbalized 10-15 watery stools. Reports of no longer have abdominal discomfort. Call light in reach.
[2020-02-17] MEDS: LISINOPRIL 10 MG TAB PO SCH (10:10)
[2020-02-17] MEDS ORDERED: SIMETHICONE 80 MG CHEW PO STA (18:15)
[2020-02-17] MEDS: ENOXAPARIN SOD INJ 40 MG/0.4 ML SYR SC SCH (18:35)
--- NOTE | 2020-02-17 19:12 | NUR ---
Discharge education given. Discharge packet provided. Patient is advised to follow-up the PCP and GI doctor. Verbalized understanding. Patient denies abdominal discomfort and states that his stomach is feeling better. PIV to right FA discontinued, catheter tip intact, no bleeding noted. Transported patient to private vehicle with all belongings taken.
--- NOTE | 2020-02-18 06:06 | Discharge Summary ---
PRIMARY CARE DOCTOR: Chandrakant Elizondo MD FINAL DIAGNOSIS: Abdominal pain, likely due to constipation. SECONDARY DIAGNOSES: 1. Hypertension. 2. Psoriasis. CONSULTANTS: None. PROCEDURES/STUDIES PERFORMED: CT of the abdomen and pelvis. HISTORY: Per H and P. HOSPITAL COURSE: The patient was admitted with no bowel movement for 5 to 6 days. After he received magnesium citrate, the patient had multiple BMs and now his abdominal pain has completely gone. In the emergency room, his lipase was 79, upper normal limit wound since 78. However, CT has no evidence of pancreatitis. 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 The patient stated that at this time, he only drinks about one beer a week. Also, this pain is different. The patient also had a fever of 101.5, in the emergency room. However, the patient denies any fever at home and he did not have any more fever while in the hospital. He did receive a dose of Zosyn. CT shows possible enteritis. However, the patient did not have nausea, vomiting, or diarrhea. At this time, the patient is tolerating p.o., will be discharged to home. The patient will follow up with his primary care doctor in a week and also recommend him to get a GI outpatient evaluation. I have updated his primary care doctor about this visit. The patient was seen and examined today. CONDITION ON DISCHARGE: Improved. DISCHARGE MEDICATIONS: Please see medication reconciliation form. MD FREDERICK Francis/SUZY /[id number]
== END 2020-02-17 19:12 | disposition home or self-care (01) ==
LOC: ER 19:13 → MED/SURG 02-16 03:26
PROVIDERS: ADMIT Internal Medicine; ATTEND Internal Medicine
DX: K59.00 Constipation, unspecified (principal); I10 Essential (primary) hypertension; L40.9 Psoriasis, unspecified
CPT/HCPCS: 36415 ×2; 74177; 80048; 80053; 80061; 80076; 81001; 82550; 82553; 83605; 83690 ×2; 84443; 84484; 85025 ×2; 87040; 87086; 87635; 93005; 99284; 99285; G0378 ×2; J1650 ×2; J2270; J2405; J2543; J7030; Q9967

== ENCOUNTER 2023-10-10 04:45 | Inpatient (IN) | payer MEDICARE ==
[~2023-10-10] VITALS: Ht 185.4 cm; Wt 115.7 kg
[~2023-10-10 04:45] MED LIST changes: +AMLODIPINE BESY10 MG PO; +BENZONATATE100 MG PO; +CLARITIN10 MG PO; +FLONASE ALLERG9.9 ML INH; +HUMIRA; +HUMIRA40 MG/0.8; +MUCINEX DM ER1 EAC1 PO; +SIMVASTATIN20 MG PO
[2023-10-10] MEDS ORDERED: FAMOTIDINE 20 MG/2 ML VIAL IV STA (04:58)
[2023-10-10] MEDS ORDERED: SODIUM CHLORIDE 0.9% 1000ML 1,000 ML IV STA (04:58)
[2023-10-10] MEDS ORDERED: ONDANSETRON HCL INJ 2MG/ML 2ML 2 MG/ML VIAL IV STA (04:58)
[2023-10-10 05:25] LABS: BASOPHILS % 0.3 % (0.0-1.0); EOSINOPHILS # (AUTO) 0.1 (0.0-0.4); EOSINOPHILS % 1.4 % (0.0-6.0); HEMATOCRIT 43.4 % (38.2-49.6); HEMOGLOBIN 14.6 g/dL (14.0-18.0); LYMPHOCYTES # (AUTO) 1.6 (1.0-3.2); LYMPHOCYTES % 16.3 % (18.0-39.1); MEAN CORPUSCULAR HEMOGLOBIN 31.8 pg (28-32); MEAN CORPUSCULAR HGB CONC 33.6 g/dL (31-35); MEAN CORPUSCULAR VOLUME 94.6 fL (81-99); MONOCYTES # (AUTO) 0.9 (0.2-0.8); MONOCYTES % 8.6 % (4.4-11.3); NEUTROPHILS # (AUTO) 7.3 (2.1-6.9); NEUTROPHILS % 73.2 % (38.7-80.0); PLATELET COUNT 198 x10e3/uL (140-360); RED BLOOD COUNT 4.59 x10e6/uL (4.3-5.7); WHITE BLOOD COUNT 9.97 x10e3/uL (4.8-10.8)
[2023-10-10 05:29] LABS: BILIRUBIN,URINE NEGATIVE (NEGATIVE); CLARITY,URINE CLEAR (CLEAR); COLOR,URINE YELLOW (YELLOW); GLUCOSE, URINE NEGATIVE (NEGATIVE); KETONES,URINE NEGATIVE (NEGATIVE); LEUKOCYTE ESTERASE ,URINE NEGATIVE (NEGATIVE); NITRITE,URINE NEGATIVE (NEGATIVE); PH,URINE 6 (5 - 7); PROTEIN,URINE DIPSTICK NEGATIVE (NEGATIVE); URINE UROBILINOGEN 1 mg/dL (0.2 - 1)
[2023-10-10 05:40] LABS: BACTERIA,URINE FEW /HPF; EPITHELIAL CELLS,URINE FEW /LPF; MUCUS,URINE MANY (RARE); WBC,URINE (MAN) 0-5 /HPF (0-5)
[2023-10-10 05:47] LABS: ALBUMIN 3.9 g/dL (3.5-5.0); ALBUMIN/GLOBULIN RATIO 1.2 (0.8-2.0); ANION GAP 16.4 mmol/L (8-16); BILIRUBIN,TOTAL 1.1 mg/dL (0.2-1.2); CALCIUM 8.9 mg/dL (8.4-10.2); CREATININE, SERUM 1.25 mg/dL (0.72-1.25); POTASSIUM 4.4 mmol/L (3.5-5.1); TOTAL PROTEIN 7.1 g/dL (6.5-8.1)
[2023-10-10] MEDS ORDERED: IOPAMIDOL 370 MG/ML 100 ML INFUS..BTL INJ ONE (06:11)
[2023-10-10] MEDS: SODIUM CHLORIDE 0.9% 1000ML 1,000 ML IV SCH ×2 (08:30→16:04)
[2023-10-10] MEDS: Morphine 2mg Syringe 2 MG/ML SYR IV PRN ×2 (10:07→16:25)
[2023-10-10] MEDS: ONDANSETRON HCL INJ 2MG/ML 2ML 2 MG/ML VIAL IV PRN ×2 (10:07→16:25)
[2023-10-10 15:21] VITALS: BP 152/75; PULSE 67; RESP 20; TEMP 98.9; O2SAT 98
[2023-10-10 16:05] VITALS: BP 152/75; PULSE 67; RESP 20; TEMP 98.9; O2SAT 98
[2023-10-10 16:14] VITALS: BP 152/75; PULSE 67; RESP 20; TEMP 98.9; O2SAT 98
[2023-10-10] MEDS ORDERED: ATORVASTATIN CA20 MG PO (16:19)
[2023-10-10] MEDS ORDERED: LASIX20 MG PO (16:19)
[2023-10-10] MEDS ORDERED: POTASSIUM CHLO10 ME1 PO (16:20)
[2023-10-10] MEDS ORDERED: ASPIRIN EC81 MG PO (16:21)
[2023-10-10] MEDS ORDERED: HYDRALAZINE HCL 20 MG/ML VIAL IV PRN (19:45)
[2023-10-10 20:00] VITALS: PULSE 63; RESP 20; TEMP 98.6; O2SAT 96
[2023-10-10] MEDS: LACTATED RINGER'S 1,000 ML INJ SCH (20:05)
[2023-10-10] MEDS: ENOXAPARIN SOD INJ 40 MG/0.4 ML SYR SC SCH (20:05)
[2023-10-10 20:15] VITALS: BP 152/75; PULSE 63; RESP 20; TEMP 98.6; O2SAT 96
[2023-10-11] VITALS (7 sets, daily range): BP systolic 138–162; BP diastolic 7–80; PULSE 60–67; RESP 18–20; TEMP 98.1–98.7; O2SAT 97–99
[2023-10-11 05:43] LABS: BASOPHILS % 0.2 % (0.0-1.0); EOSINOPHILS # (AUTO) 0.2 (0.0-0.4); EOSINOPHILS % 3.2 % (0.0-6.0); HEMATOCRIT 40.2 % (38.2-49.6); HEMOGLOBIN 13.2 g/dL (14.0-18.0); LYMPHOCYTES # (AUTO) 1.5 (1.0-3.2); LYMPHOCYTES % 23.4 % (18.0-39.1); MEAN CORPUSCULAR HEMOGLOBIN 31.4 pg (28-32); MEAN CORPUSCULAR HGB CONC 32.8 g/dL (31-35); MEAN CORPUSCULAR VOLUME 95.5 fL (81-99); MONOCYTES # (AUTO) 0.7 (0.2-0.8); MONOCYTES % 11.7 % (4.4-11.3); NEUTROPHILS # (AUTO) 3.9 (2.1-6.9); NEUTROPHILS % 61.3 % (38.7-80.0); PLATELET COUNT 147 x10e3/uL (140-360); RED BLOOD COUNT 4.21 x10e6/uL (4.3-5.7); RED CELL DISTRIBUTION WIDTH 12.8 % (11.7-14.4); WHITE BLOOD COUNT 6.32 x10e3/uL (4.8-10.8)
[2023-10-11] MEDS: LACTATED RINGER'S 1,000 ML INJ SCH (05:47)
[2023-10-11 06:08] LABS: ALBUMIN 3.1 g/dL (3.5-5.0); ALBUMIN/GLOBULIN RATIO 1.1 (0.8-2.0); ANION GAP 13.9 mmol/L (8-16); BILIRUBIN,TOTAL 1.1 mg/dL (0.2-1.2); CALCIUM 8.9 mg/dL (8.4-10.2); CREATININE, SERUM 1.3 mg/dL (0.72-1.25); POTASSIUM 3.9 mmol/L (3.5-5.1)
[2023-10-11 06:50] LABS: CHOL/HDL RATIO 3.2 (3.9-4.7)
[2023-10-11] MEDS: Morphine 2mg Syringe 2 MG/ML SYR IV PRN (09:00)
[2023-10-11] MEDS ORDERED: FAMOTIDINE 20 MG/2 ML VIAL IV SCH (09:00)
[2023-10-11] MEDS: ONDANSETRON HCL INJ 2MG/ML 2ML 2 MG/ML VIAL IV PRN (09:00)
[2023-10-11] MEDS: LISINOPRIL 20 MG TAB PO SCH (11:40)
[2023-10-11] MEDS: ENOXAPARIN SOD INJ 40 MG/0.4 ML SYR SC SCH (16:08)
[2023-10-12] VITALS: BP 160/68; PULSE 59; RESP 18; TEMP 97.6; O2SAT 97
[2023-10-12 04:00] VITALS: BP 143/71; PULSE 57; RESP 18; TEMP 97.8; O2SAT 98
[2023-10-12 05:57] LABS: BASOPHILS % 0.2 % (0.0-1.0); EOSINOPHILS # (AUTO) 0.3 (0.0-0.4); EOSINOPHILS % 4.7 % (0.0-6.0); HEMATOCRIT 39.2 % (38.2-49.6); HEMOGLOBIN 13.4 g/dL (14.0-18.0); LYMPHOCYTES # (AUTO) 1.4 (1.0-3.2); LYMPHOCYTES % 26.3 % (18.0-39.1); MEAN CORPUSCULAR HEMOGLOBIN 31.3 pg (28-32); MEAN CORPUSCULAR HGB CONC 34.2 g/dL (31-35); MEAN CORPUSCULAR VOLUME 91.6 fL (81-99); MONOCYTES # (AUTO) 0.7 (0.2-0.8); MONOCYTES % 12.6 % (4.4-11.3); PLATELET COUNT 166 x10e3/uL (140-360); RED BLOOD COUNT 4.28 x10e6/uL (4.3-5.7); RED CELL DISTRIBUTION WIDTH 12.6 % (11.7-14.4); WHITE BLOOD COUNT 5.32 x10e3/uL (4.8-10.8)
[2023-10-12 06:42] LABS: ANION GAP 13.8 mmol/L (8-16); CALCIUM 9.1 mg/dL (8.4-10.2); CREATININE, SERUM 1.29 mg/dL (0.72-1.25); POTASSIUM 3.8 mmol/L (3.5-5.1)
[2023-10-12 07:33] VITALS: BP 145/73; PULSE 66; RESP 19; TEMP 98.9; O2SAT 95
[2023-10-12 09:35] VITALS: BP 145/73; PULSE 66; RESP 19; TEMP 98.9; O2SAT 95
[2023-10-12] MEDS: LISINOPRIL 20 MG TAB PO SCH (11:27)
[2023-10-12 12:00] VITALS: BP 147/82; PULSE 64; RESP 20; TEMP 97.6; O2SAT 97
[2023-10-12] MEDS ORDERED: ONDANSETRON HCL 4 MG ORAL DISINTEGRATING TAB PO PRN (13:30)
== END 2023-10-12 16:20 | disposition home or self-care (01) | DRG 607 ==
LOC: ER 04:57 → ERHOLD 08:21 → MED/SURG 15:21 → OBSVTOIN 10-11 16:16
PROVIDERS: ADMIT Internal Medicine; ATTEND Internal Medicine
DX: M79.3 Panniculitis, unspecified (principal); K86.1 Other chronic pancreatitis; I10 Essential (primary) hypertension; E66.9 Obesity, unspecified; L40.9 Psoriasis, unspecified; M06.9 Rheumatoid arthritis, unspecified; E86.0 Dehydration; Z20.822 Contact with and (suspected) exposure to COVID-19; K86.81 Exocrine pancreatic insufficiency; Z68.33 Body mass index [BMI] 33.0-33.9, adult
CPT/HCPCS: 36415; 74177; 76705; 80048; 80053; 80061; 81001; 83690; 85025; 99284; G0378; J1650; J2270; J2405; J7030; Q9967; U0002

== ENCOUNTER 2023-12-31 16:43 | Inpatient (IN) | payer MEDICARE ==
[~2023-12-31] VITALS: Ht 190.5 cm; Wt 115.7 kg
[~2023-12-31 16:43] MED LIST changes: +ASPIRIN EC81 MG PO; +ATORVASTATIN CA20 MG PO; +LASIX20 MG PO; +POTASSIUM CHLO10 ME1 PO
[2023-12-31] MEDS ORDERED: ACETAMINOPHEN 325 MG TAB PO ONE (17:30)
[2023-12-31 17:32] LABS: BASOPHILS % 0.2 % (0.0-1.0); EOSINOPHILS % 0.2 % (0.0-6.0); HEMATOCRIT 40.8 % (38.2-49.6); HEMOGLOBIN 14.8 g/dL (14.0-18.0); LYMPHOCYTES # (AUTO) 0.5 (1.0-3.2); MEAN CORPUSCULAR HEMOGLOBIN 32.2 pg (28-32); MEAN CORPUSCULAR HGB CONC 36.3 g/dL (31-35); MEAN CORPUSCULAR VOLUME 88.7 fL (81-99); MONOCYTES # (AUTO) 1.1 (0.2-0.8); MONOCYTES % 8.1 % (4.4-11.3); NEUTROPHILS # (AUTO) 11.4 (2.1-6.9); NEUTROPHILS % 86.7 % (38.7-80.0); PLATELET COUNT 153 x10e3/uL (140-360); RED CELL DISTRIBUTION WIDTH 13.2 % (11.7-14.4); WHITE BLOOD COUNT 13.12 x10e3/uL (4.8-10.8)
[2023-12-31 17:45] LABS: ALBUMIN 3.7 g/dL (3.5-5.0); ALBUMIN/GLOBULIN RATIO 1.2 (0.8-2.0); ANION GAP 13.9 mmol/L (8-16); CALCIUM 8.6 mg/dL (8.4-10.2); CREATININE, SERUM 1.53 mg/dL (0.72-1.25); POTASSIUM 3.9 mmol/L (3.5-5.1); TOTAL PROTEIN 6.9 g/dL (6.5-8.1)
[2023-12-31 17:48] LABS: BILIRUBIN,URINE SMALL (NEGATIVE); CLARITY,URINE SL CLOUDY (CLEAR); COLOR,URINE YELLOW (YELLOW); GLUCOSE, URINE NEGATIVE (NEGATIVE); KETONES,URINE TRACE (NEGATIVE); LEUKOCYTE ESTERASE ,URINE NEGATIVE (NEGATIVE); NITRITE,URINE NEGATIVE (NEGATIVE); PH,URINE 5.5 (5 - 7); PROTEIN,URINE DIPSTICK NEGATIVE (NEGATIVE); URINE UROBILINOGEN 0.2 mg/dL (0.2 - 1)
[2023-12-31 17:55] LABS: BACTERIA,URINE MODERATE /HPF; EPITHELIAL CELLS,URINE MODERATE /LPF; MUCUS,URINE MANY (RARE); WBC,URINE (MAN) 0-5 /HPF (0-5)
[2023-12-31] MEDS: CEFTRIAXONE 1 GM VIAL IV SCH (18:09)
[2023-12-31] MEDS: SODIUM CHLORIDE 0.9% 1000ML 1,000 ML IV ONE (18:09)
[2023-12-31] MEDS: IBUPROFEN 600 MG TAB PO STA (18:09)
[2023-12-31] MEDS: SODIUM CHLORIDE 0.9% 1000ML 1,000 ML IV STA (18:18)
[2023-12-31] MEDS ORDERED: ONDANSETRON HCL INJ 2MG/ML 2ML 2 MG/ML VIAL IV PRN (20:00)
[2023-12-31 20:07] LABS: ALBUMIN 3.2 g/dL (3.5-5.0); ALBUMIN/GLOBULIN RATIO 1.2 (0.8-2.0); BILIRUBIN,TOTAL 0.8 mg/dL (0.2-1.2); CREATININE, SERUM 1.42 mg/dL (0.72-1.25); TOTAL PROTEIN 5.9 g/dL (6.5-8.1)
[2023-12-31 20:47] LABS: TROPONIN I 0.025 ng/mL (0-0.300)
[2023-12-31 20:50] VITALS: BP 117/69; PULSE 62; RESP 18; TEMP 98.6; O2SAT 95
[2023-12-31] MEDS: SODIUM CHLORIDE 0.9% 1000ML 1,000 ML IV SCH (22:02)
[2023-12-31 22:15] VITALS: BP 117/69; PULSE 62; RESP 18; TEMP 98.6; O2SAT 95
[2023-12-31 22:26] VITALS: BP 117/69; PULSE 62; RESP 18; TEMP 98.6; O2SAT 95
[2023-12-31] MEDS ORDERED: HYDROXYZINE HCL25 MG PO (22:30)
[2023-12-31 22:47] VITALS: PULSE 63; RESP 18; O2SAT 94
[2024-01-01] VITALS (11 sets, daily range): BP systolic 116–167; BP diastolic 63–89; PULSE 54–77; RESP 16–20; TEMP 97–98.6; O2SAT 93–99
[2024-01-01 07:22] LABS: BASOPHILS % 0.2 % (0.0-1.0); EOSINOPHILS # (AUTO) 0.2 (0.0-0.4); EOSINOPHILS % 1.6 % (0.0-6.0); HEMATOCRIT 36.9 % (38.2-49.6); HEMOGLOBIN 12.8 g/dL (14.0-18.0); LYMPHOCYTES # (AUTO) 1.4 (1.0-3.2); LYMPHOCYTES % 14.4 % (18.0-39.1); MEAN CORPUSCULAR HEMOGLOBIN 31.6 pg (28-32); MEAN CORPUSCULAR HGB CONC 34.7 g/dL (31-35); MEAN CORPUSCULAR VOLUME 91.1 fL (81-99); MONOCYTES % 9.9 % (4.4-11.3); NEUTROPHILS # (AUTO) 7.2 (2.1-6.9); NEUTROPHILS % 73.4 % (38.7-80.0); PLATELET COUNT 142 x10e3/uL (140-360); RED BLOOD COUNT 4.05 x10e6/uL (4.3-5.7); RED CELL DISTRIBUTION WIDTH 13.4 % (11.7-14.4); WHITE BLOOD COUNT 9.74 x10e3/uL (4.8-10.8)
[2024-01-01 07:46] LABS: ALBUMIN 3.1 g/dL (3.5-5.0); ALBUMIN/GLOBULIN RATIO 1.1 (0.8-2.0); ANION GAP 10.1 mmol/L (8-16); BILIRUBIN,TOTAL 1.1 mg/dL (0.2-1.2); CALCIUM 8.2 mg/dL (8.4-10.2); CREATININE, SERUM 1.34 mg/dL (0.72-1.25); POTASSIUM 4.1 mmol/L (3.5-5.1); TOTAL PROTEIN 5.8 g/dL (6.5-8.1)
[2024-01-01] MEDS ORDERED: ACETAMINOPHEN 325 MG TAB PO PRN (08:00)
[2024-01-01 08:19] LABS: TROPONIN I 0.019 ng/mL (0-0.300)
[2024-01-01] MEDS: ATORVASTATIN 20 MG TAB PO SCH (10:00)
[2024-01-01] MEDS: ASPIRIN 81 MG ENTERIC COATED PO SCH (10:00)
[2024-01-01] MEDS: HYDROXYZINE HCL 25 MG TAB PO SCH (10:00)
[2024-01-01 16:31] LABS: TROPONIN I 0.009 ng/mL (0-0.300)
[2024-01-02] VITALS: BP 169/74; PULSE 50; RESP 17; TEMP 98.1; O2SAT 95
[2024-01-02 04:00] VITALS: BP 167/68; PULSE 55; RESP 18; TEMP 97.8; O2SAT 96
[2024-01-02 06:27] LABS: BASOPHILS % 0.3 % (0.0-1.0); EOSINOPHILS # (AUTO) 0.3 (0.0-0.4); EOSINOPHILS % 4.4 % (0.0-6.0); HEMATOCRIT 40.1 % (38.2-49.6); HEMOGLOBIN 13.3 g/dL (14.0-18.0); LYMPHOCYTES # (AUTO) 1.6 (1.0-3.2); LYMPHOCYTES % 26.4 % (18.0-39.1); MEAN CORPUSCULAR HEMOGLOBIN 30.9 pg (28-32); MEAN CORPUSCULAR HGB CONC 33.2 g/dL (31-35); MEAN CORPUSCULAR VOLUME 93.3 fL (81-99); MONOCYTES # (AUTO) 0.7 (0.2-0.8); MONOCYTES % 11.9 % (4.4-11.3); NEUTROPHILS # (AUTO) 3.5 (2.1-6.9); NEUTROPHILS % 56.8 % (38.7-80.0); PLATELET COUNT 146 x10e3/uL (140-360); RED CELL DISTRIBUTION WIDTH 13.3 % (11.7-14.4); WHITE BLOOD COUNT 6.13 x10e3/uL (4.8-10.8)
[2024-01-02 06:50] LABS: ANION GAP 11.1 mmol/L (8-16); CALCIUM 8.3 mg/dL (8.4-10.2); CREATININE, SERUM 1.24 mg/dL (0.72-1.25); POTASSIUM 4.1 mmol/L (3.5-5.1)
[2024-01-02 06:51] VITALS: PULSE 62; RESP 16; O2SAT 96
[2024-01-02 07:23] VITALS: BP 179/83; PULSE 52; RESP 20; TEMP 98.2; O2SAT 97
[2024-01-02] MEDS: CLONIDINE HCL 0.1 MG TAB PO PRN (08:37)
[2024-01-02 08:57] VITALS: BP 179/83; PULSE 52; RESP 20; TEMP 98.2; O2SAT 97
[2024-01-02] MEDS ORDERED: ONDANSETRON HCL 4 MG ORAL DISINTEGRATING TAB PO PRN (11:15)
[2024-01-02 12:23] VITALS: BP 144/67
[2024-01-02] MEDS: LISINOPRIL 20 MG TAB PO SCH (12:23)
== END 2024-01-02 12:46 | disposition home or self-care (01) | DRG 866 ==
LOC: ER 16:51 → ERHOLD 19:58 → MED/SURG2 20:46 → OBSVTOIN 01-02 09:52
PROVIDERS: ADMIT Internal Medicine; ATTEND Internal Medicine
DX: B34.9 Viral infection, unspecified (principal); N17.9 Acute kidney failure, unspecified; I10 Essential (primary) hypertension; E78.00 Pure hypercholesterolemia, unspecified; E11.9 Type 2 diabetes mellitus without complications; G47.30 Sleep apnea, unspecified; L40.9 Psoriasis, unspecified; Z11.52 Encounter for screening for COVID-19; Z88.5 Allergy status to narcotic agent; Z79.82 Long term (current) use of aspirin; Z79.899 Other long term (current) drug therapy
CPT/HCPCS: 36415; 71046; 80048; 80053; 81001; 82550; 83605; 83690; 84484; 85025; 87040; 87086; 87400; 94660; 94799; 99284; G0378; J0696; J3410; J7030; U0002

== ENCOUNTER 2024-05-07 18:47 | Emergency (ER) | payer MEDICARE ==
[~2024-05-07] VITALS: Ht 190.5 cm; Wt 115.7 kg
[~2024-05-07 18:47] MED LIST changes: +HYDROXYZINE HCL25 MG PO
[2024-05-07 19:51] VITALS: PULSE 87; RESP 20; TEMP 100.9; O2SAT 97
[2024-05-07] MEDS ORDERED: PAXLOVID 300-11 EAC1 PO (20:06)
[2024-05-07] MEDS: ACETAMINOPHEN 325 MG TAB PO ONE (20:07)
== END 2024-05-07 20:09 | disposition home or self-care (01) ==
LOC: ER 18:52
DX: R50.9 Fever, unspecified (principal); U07.1 COVID-19; R05.9 Cough, unspecified; I10 Essential (primary) hypertension; E78.5 Hyperlipidemia, unspecified; L40.9 Psoriasis, unspecified; G47.30 Sleep apnea, unspecified
CPT/HCPCS: 99283

== ENCOUNTER 2024-07-01 10:23 | Emergency (ER) | payer MEDICARE ==
[~2024-07-01] VITALS: Ht 190.5 cm; Wt 115.7 kg
[~2024-07-01 10:23] MED LIST changes: +PAXLOVID 300-11 EAC1 PO
[2024-07-01 10:30] VITALS: PULSE 72; RESP 16; TEMP 97.9; O2SAT 99
[2024-07-01] MEDS: IBUPROFEN 600 MG TAB PO STA (10:44)
[2024-07-01] MEDS ORDERED: IBUPROFEN 600 MG TAB ONE (10:47)
[2024-07-01] MEDS ORDERED: PREDNISONE50 MG PO (11:38)
[2024-07-01 12:20] VITALS: BP 172/83
== END 2024-07-01 12:21 | disposition home or self-care (01) ==
LOC: ER 10:27
DX: M79.671 Pain in right foot (principal); M10.9 Gout, unspecified; I10 Essential (primary) hypertension; E78.5 Hyperlipidemia, unspecified; L40.9 Psoriasis, unspecified; G47.30 Sleep apnea, unspecified
CPT/HCPCS: 99283

== ENCOUNTER 2024-08-30 17:15 | Emergency (ER) | payer MEDICARE ==
[~2024-08-30] VITALS: Ht 190.5 cm; Wt 115.7 kg
[~2024-08-30 17:15] MED LIST changes: +PREDNISONE50 MG PO
[2024-08-30 18:35] LABS: BASOPHILS % 0.6 % (0.0-1.0); EOSINOPHILS # (AUTO) 0.2 (0.0-0.4); EOSINOPHILS % 3.4 % (0.0-6.0); HEMATOCRIT 45.7 % (38.2-49.6); HEMOGLOBIN 15.2 g/dL (14.0-18.0); LYMPHOCYTES # (AUTO) 1.5 (1.0-3.2); LYMPHOCYTES % 28.6 % (18.0-39.1); MEAN CORPUSCULAR HEMOGLOBIN 32.1 pg (28-32); MEAN CORPUSCULAR HGB CONC 33.3 g/dL (31-35); MEAN CORPUSCULAR VOLUME 96.4 fL (81-99); MONOCYTES # (AUTO) 0.6 (0.2-0.8); MONOCYTES % 10.9 % (4.4-11.3); NEUTROPHILS % 56.1 % (38.7-80.0); PLATELET COUNT 166 x10e3/uL (140-360); RED BLOOD COUNT 4.74 x10e6/uL (4.3-5.7); RED CELL DISTRIBUTION WIDTH 12.6 % (11.7-14.4); WHITE BLOOD COUNT 5.31 x10e3/uL (4.8-10.8)
[2024-08-30 18:43] LABS: INR 0.91; PROTHROMBIN TIME 12.8 seconds (11.9-14.5)
[2024-08-30 18:54] LABS: ALBUMIN/GLOBULIN RATIO 1.2 (0.8-2.0); ANION GAP 13.9 mmol/L (8-16); BILIRUBIN,TOTAL 0.6 mg/dL (0.2-1.2); CALCIUM 9.4 mg/dL (8.4-10.2); CREATININE, SERUM 1.52 mg/dL (0.72-1.25); POTASSIUM 3.9 mmol/L (3.5-5.1); TOTAL PROTEIN 7.4 g/dL (6.5-8.1)
[2024-08-30] MEDS: SODIUM CHLORIDE 0.9% 1000ML 1,000 ML IV STA (18:55)
[2024-08-30 18:59] LABS: TROPONIN I 0.03 ng/mL (0-0.300)
[2024-08-30 19:12] LABS: CORONAVIRUS COVID-19 AG NEGATIVE (NEGATIVE); INFLUENZA A AG NEGATIVE (NEGATIVE); INFLUENZA B AG NEGATIVE (NEGATIVE)
[2024-08-30 22:00] VITALS: PULSE 67; RESP 18; TEMP 98.8; O2SAT 98
== END 2024-08-30 22:00 | disposition home or self-care (01) ==
LOC: ER 18:04
DX: R03.0 Elevated blood-pressure reading, without diagnosis of hypertension (principal); R40.4 Transient alteration of awareness; Z11.52 Encounter for screening for COVID-19; I10 Essential (primary) hypertension; E78.5 Hyperlipidemia, unspecified; M10.9 Gout, unspecified; G47.30 Sleep apnea, unspecified; L40.9 Psoriasis, unspecified
CPT/HCPCS: 36415; 70496; 70498; 71045; 80053; 82550; 83690; 83880; 84484; 85025; 85610; 93005; 99284